=== PATIENT | female | born 1960 | race Caucasian/White ===

== ENCOUNTER → 2016-07-13 | Outpatient (CLI) | payer OTHER | END | disposition disaster alternative care site (69) | LOC: GRAD 06:48 | DX: G93.9 Disorder of brain, unspecified (principal); I63.9 Cerebral infarction, unspecified | CPT/HCPCS: A9577 ==

== ENCOUNTER → 2016-10-21 | Outpatient (CLI) | payer OTHER ==
[2016-10-21 08:44] LABS: CREATININE 0.9 mg/dL (0.5-1.1)
[2016-10-21 08:47] LABS: ESTIMATED GFR (MDRD EQUATION) > 60
== END | disposition disaster alternative care site (69) ==
LOC: GRAD 08:00 → GLAB 08:00 → GRAD 08:03
PROVIDERS: Neurological Surgery
DX: G93.9 Disorder of brain, unspecified (principal)
CPT/HCPCS: A9577